=== PATIENT | female | born 1980 | race Two or more races ===

== ENCOUNTER 2024-09-04 07:15 | Day surgery (SDC) | payer MEDICAID ==
[2024-08-28 10:03] LABS: Urine Bacteria None Seen /hpf (None Seen)
[2024-08-28 10:07] LABS: Basophils # (auto) 0 10 ^3/uL (0-0.2); Basophils % (auto) 0.5 % (0.0-2.0); Eosinophils # (auto) 0.1 10 ^3/uL (0-0.8); Eosinophils % (auto) 0.7 % (0.0-7.0); Hematocrit 43.5 % (36.0-46.0); Hemoglobin 15.1 g/dL (12.2-16.2); Lymphocytes % (auto) 22.5 % (10.0-50.0); Mean Corpuscular Hemoglobin 31.5 pg (28.0-32.0); Mean Corpuscular Hgb Conc. 34.6 g/dL (32.0-36.0); Mean Corpuscular Volume 91.1 fL (80.0-100.0); Monocytes # (auto) 0.7 10 ^3/uL (0-1.3); Monocytes % (auto) 7.3 % (0.0-12.0); Neutrophils # (auto) 6.2 10 ^3/uL (1.6-8.6); Platelet Count (auto) 226 10^3/uL (140-450); Red Blood Cells 4.77 10^6/uL (4.0-5.20); White Blood Cell 8.9 10^3/uL (4.4-10.8)
[2024-08-28 10:16] LABS: Urine Blood Negative /uL (Negative); Urine Clarity Clear (Clear); Urine Color Light-Yellow (Yellow); Urine Protein, UAD Negative (Negative); Urine Specific Gravity 1.011 (1.001-1.035); Urine Squamous Epithelial Cell FEW /hpf (<5); Urine Urobilinogen Normal (Negative); Urine WBC < 1 /HPF (0-5); Urine pH 6.5 (5.0-9.0)
[2024-08-28 10:22] LABS: INR 0.96 (0.9-1.15); Partial Thromboplastin Time 25.2 SEC (24.5-34.5); Prothrombin Time 10.2 sec (9.3-11.8)
[2024-08-28 10:38] LABS: Alanine Aminotransferase 16 U/L (7-40); Albumin 4.7 g/dL (3.2-4.8); Alkaline Phosphatase 65 U/L (46-116); Anion Gap 4 (5-15); Bilirubin, Total 0.8 mg/dL (0.2-1.0); Calcium 10.2 mg/dL (8.7-10.4); Carbon Dioxide 30 mmol/L (20-31); Chloride 107 mmol/L (98-107); Sodium 141 mmol/L (136-145); Total Protein 6.8 g/dL (5.7-8.2)
[2024-08-28 10:43] LABS: Aspartate Aminotransferase < 8 U/L (13-40); Blood Urea Nitrogen 7 mg/dL (9-23); Glucose 107 mg/dL (74-106)
[~2024-09-04] VITALS: Ht 165.1 cm; Wt 63.0 kg
[2024-09-04] MEDS ORDERED: ceFAZolin 2 GM/D5W50ml 50 ML IV ONE (07:33)
[2024-09-04] MEDS ORDERED: fentaNYL CITRATE 100 MCG/2 ML VL ONE (08:18)
[2024-09-04] MEDS ORDERED: KETAMINE 50mg/ML 1ml syringe ONE (08:18)
[2024-09-04] MEDS ORDERED: MIDAZOLAM HCL 2MG/2ML 2ml VIAL (1mg/ml) ONE (08:19)
[2024-09-04] MEDS ORDERED: LIDOCAINE 1% (LOCAL ANESTH.) PF 5ml SDV ONE (08:19)
[2024-09-04] MEDS ORDERED: PROPOFOL 10 MG/ML 20 ML IV ONE (08:20)
[2024-09-04] MEDS ORDERED: ONDANSETRON HCL 4 MG/2 ML VIAL ONE (08:20)
[2024-09-04] MEDS ORDERED: BACITRACIN TOP OINT 1 UD PKG TOP ONE (09:07)
[2024-09-04] MEDS: LIDOCAINE 1% HCL (LOCAL ANESTH.) INJ 20ML MDV ONE (09:14)
[2024-09-04 09:22] VITALS: PULSE 125; RESP 11; TEMP 98; O2SAT 100
--- NOTE | 2024-09-04 09:25 | DVHOP2 ---
Operative Report - 2 Report Details Date: 09/04/24 Preop Diagnosis: 1. Right hallux ingrown nail 2. Right hallux toe cellulitis 3. Right second toe ingrown nail 4. Right second toe cellulitis 5. Right foot pain Postop Diagnosis: Right foot ingrown nail Surgeon: Daniella Choi MD Anesthesiologist: See anesthesia Anesthesia: Mac Consent: The patient was informed of the risks and benefits of the procedure. These include but are not limited to complications of anesthesia, postoperative infection, incomplete relief of symptoms, recurrence of symptoms, damage to blood vessels, nerves and tendons, deep venous thrombosis, pulmonary embolism and possible need for repeat surgery in the future. Complications: None Estimated Blood Loss: Minimal Fluids: See anesthesia Findings: Consistent with the diagnosis Indications for Surgery: Worsening ingrown nails Name of Procedure Performed 1. Right hallux complete matrixectomy (08918) 2. Right second toe complete matrixectomy (24714) Procedure Details Procedure Details: PRE-PROCEDURE INFORMATION: In the pre-op holding area, the extremity to be operated on was clearly marked and the patient verified correct laterality of the marking. The patient was transferred to the OR table and placed in a supine position. A timeout was performed in which identification of the correct patient, procedure, location, and materials was done. The _ foot and leg were prepped and draped in normal sterile fashion. The foot and leg were exsanguinated and the _ tourniquet was inflated to 250 mmHg. DESCRIPTION OF PROCEDURE: ASSESSMENT: The right hallux toe was anesthetized with 3cc of 1% Lidocaine plain in standard fashion. The area was dressed and prepped in usual sterile technique with Betadine, a tourniquet was applied for this procedure. Using a freer elevator, [place] Anvil, and hemostat, the offending nail and/or nail border(s) was elevated and removed. Mild serous drainage noted, no purulent drainage. Non-viable tissue was removed with a curette. The nail borders were then treated with 3 applications of approximately 20-30 seconds of phenol followed by neutralization with alcohol. Bacitracin, sterile gauze and Coban dressing was applied to the digit. The right second toe was anesthetized with 3cc of 1% Lidocaine plain in standard fashion. The area was dressed and prepped in usual sterile technique with Betadine, a tourniquet was applied for this procedure. Using a freer elevator, [place] Anvil, and hemostat, the offending nail and/or nail border(s) was elevated and removed. Mild serous drainage noted, no purulent drainage. Non- viable tissue was removed with a curette. The nail borders were then treated with 3 applications of approximately 20-30 seconds of phenol followed by neutralization with alcohol. Bacitracin, sterile gauze and Coban dressing was applied to the digit. All surgical wounds were irrigated copiously with saline and closed in layers with the aforementioned suture material. A dry sterile dressing was placed on the surgical extremity. The patient was placed in a post op shoe POSTOPERATIVE INFORMATION: The patient tolerated the above noted procedure and anesthesia well and was transferred to the PACU with vital signs stable, and vascular status intact with capillary refill intact to all digits. Postoperative instructions reviewed in detail with the patient with written instructions provided. Patient will return to clinic in approximately 10-14 days for first postoperative visit. Patient has the number of the clinic and was instructed to call prior to that time should any problems, questions, or concerns arise. Condition Good Disposition Home DANIELLA CHOI DPM September 04, 2024 09:25
[2024-09-04] MEDS ORDERED: MORPHINE SULFATE 4 MG/ML SYR/VIAL IV PRN (09:30)
[2024-09-04] MEDS ORDERED: ACCU-CHEK COMFORT CURVE STRIP VI ONE (09:30)
[2024-09-04] MEDS ORDERED: KETOROLAC TROMETH 30 MG/ML 1ML VIAL IV ONE (09:30)
[2024-09-04] MEDS ORDERED: HYDROmorphone HCL 2 MG/ML VL/or syr IV PRN ×2 (09:30)
[2024-09-04] MEDS ORDERED: METOCLOPRAMIDE HCL 5MG/ml INJ 2ml VIAL IV ONE (09:30)
[2024-09-04] MEDS ORDERED: MORPHINE SULFATE INJ 2 MG/ml SYRG IV PRN (09:30)
[2024-09-04 09:52] VITALS: BP 128/74; PULSE 81; RESP 15; O2SAT 99
== END 2024-09-04 10:10 | disposition home or self-care (01) ==
LOC: SUR 07:15
PROVIDERS: ATTEND Podiatrist
DX: L03.031 Cellulitis of right toe (principal); L60.0 Ingrowing nail; J45.909 Unspecified asthma, uncomplicated; F31.89 Other bipolar disorder; F17.210 Nicotine dependence, cigarettes, uncomplicated; Z90.710 Acquired absence of both cervix and uterus; Z98.890 Other specified postprocedural states; Z88.1 Allergy status to other antibiotic agents
CPT/HCPCS: 11750; 36415; 80053; 81001; 81025; 85025; 85610; 85730; J0690; J2003; J2250; J2405; J2704; J3010